=== PATIENT | male | born 1965 | race Two or more races ===

== ENCOUNTER 2019-06-06 03:19 | Inpatient (IN) | payer MEDICAID ==
[~2019-06-06] VITALS: Ht 172.7 cm; Wt 80.7 kg
--- NOTE | 2019-06-06 07:00 | NUR ---
DOOR MAKER NOTE: RECEIVED PATIENT FROM [facility], NO ACUTE DISTRESS. BREATHING EVEN AND UNLABORED, NO SOB NOTED. PATIENT STATES THAT CHEST PAIN HAS IMPROVED WITH MEDICATIONS GIVEN AT [facility]. TELE READING SR 60. ORIENTED PATIENT TO ROOM AND USE OF CALL LIGHT. AWAITING ADMIT ORDERS. PATIENT'S DAUGHTER TO BRING IN HOME MEDICATION. BED LOCKED AND IN LOWEST POSITION, CALL LIGHT IN REACH. WILL ENDORSE TO DAY NURSE TO CONTINUE WITH PLAN OF CARE.
--- NOTE | 2019-06-06 07:30 | NUR ---
COSMETICS AND TOILETRIES SALESPERSON NOTES RECEIVED PT IN BED, AWAKE, ALERT AND ORIENTED X4. CROATIAN SPEAKING BUT UNDERSTABDS MAURITIAN. PT ADMITTED FROM [place] FOR CHEST PAIN. PT HAS NO COMPLAINTS OF CHEST PAIN AT THIS TIME. NO CARDIAC OR RESPIRATORY DISTRESS NOTED. PT IS ON A FIRST LEVELER ON NSR. IV SITE NOTED ON R FOREARM. G20. INTACT AND PATENT. NO S/S OF INFECTION OR INFILTRATION NOTED. AMBULATORY. AND CONTINENT OF B/B. WILL CONTINUE TO MONITOR
[2019-06-06] MEDS ORDERED: METO25TA4 PO (07:44)
[2019-06-06] MEDS ORDERED: ATOR40TA PO (07:44)
[2019-06-06] MEDS ORDERED: ASPI-1152 PO (07:44)
[2019-06-06] MEDS ORDERED: SITA100T PO (07:44)
[2019-06-06] MEDS ORDERED: METF-442 PO (07:44)
[2019-06-06] MEDS ORDERED: FENO160T PO (07:44)
[2019-06-06 08:00] VITALS: BP 119/71
--- NOTE | 2019-06-06 08:00 | NUR ---
ADMISSION LARGE ANIMAL VETERINARIAN NOTES PT NEWLY ADMITTEDAOX3. ADMITTING DX OF CHEST PAIN. NO C/O OF CHEST PAIN AT THIS TIME. NO CARDIAC OR RESPIRATORY DISTRESS NOTED. PT IS INDONESIAN SPEAKING BUT UNDERSTANDS BRUNEIAN. 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 NSR. IV SITE NOTED ON R FORE ARM G20. INTACT AND PATENT. NO S/S OF INFILTRATION OR INFECTION NOTED FLUSHING WELL. SAFETY PRECAUTIONS IN PLACE. BED LOCKED AND IN LOW POSITION. PT IS AMBULATORY. WILL CONT TO MONITOR
[2019-06-06] MEDS ORDERED: ONDANSETRON HCL/PF 4 MG/2 ML VIAL IVP PRN (09:30)
[2019-06-06] MEDS ORDERED: MAGNESIUM HYDROXIDE 30 ML UDC PO PRN (09:30)
[2019-06-06] MEDS ORDERED: MAG HYDROX/AL HYDROX/SIMETH 30 ML UDC PO PRN (09:30)
[2019-06-06] MEDS ORDERED: Z GUARD REMEDY 2 OZ OINT TP PRN (09:30)
[2019-06-06] MEDS ORDERED: DEXTROSE 50%-WATER 50 ML DISP.SYRIN IV PRN (09:30)
[2019-06-06] MEDS ORDERED: ACETAMINOPHEN 325 MG TABLET PO PRN (09:30)
[2019-06-06] MEDS ORDERED: HYDROCODONE/APAP 5/325MG 1 EACH TABLET PO PRN (09:30)
[2019-06-06 10:12] LABS: CALCIUM, SERUM 8.8 mg/dL (8.5-10.1); CARBON DIOXIDE 30 mmol/L (21-32); CHLORIDE 104 mmol/L (98-107); CREATININE 0.9 mg/dL (0.6-1.3); GLUCOSE 165 mg/dL (74-106); SODIUM SERUM 139 mmol/L (136-145); UREA NITROGEN, BLOOD 12 mg/dL (7-18)
[2019-06-06 10:19] LABS: ALANINE AMINOTRANSFERASE 60 U/L (12-78); ALBUMIN 3.8 g/dL (3.4-5.0); ALKALINE PHOSPHATASE 69 U/L (46-116); ASPARTATE AMINOTRANSFERASE 30 U/L (15-37); BILIRUBIN,TOTAL 0.4 mg/dL (0.2-1.0); MAGNESIUM 1.8 mg/dL (1.8-2.4); PHOSPHORUS 3.3 mg/dL (2.5-4.9); TOTAL PROTEIN, SERUM 7.1 g/dL (6.4-8.2)
[2019-06-06 10:26] LABS: CHOLESTEROL 178 mg/dL (<200); HDL CHOLESTEROL 27 mg/dL (40-60); LDL 120 mg/dL (0-99); THYROID STIMULATING HORMONE 1.036 uIU/mL (0.358-3.74); TRIGLYCERIDES 216 mg/dL (30-150)
[2019-06-06] MEDS: FENOFIBRATE NANOCRYS (145 MG) 145 MG TABLET PO SCH (10:46)
[2019-06-06 12:00] LABS: BASOPHILS % (AUTO) 0.5 % (0.0-2.0); EOSINOPHILS % (AUTO) 1.7 % (0.0-6.0); HEMATOCRIT 43 % (39-51); HEMOGLOBIN 14.4 g/dL (13.5-17.5); LYMPHOCYTES # (AUTO) 1.5 /CMM (0.8-4.8); LYMPHOCYTES % (AUTO) 19.4 % (20.0-44.0); MEAN CORPUSCULAR HGB CONC 34 g/dl (31.0-36.0); MEAN CORPUSCULAR VOLUME 86 fL (80-96); MONOCYTES # (AUTO) 0.4 /CMM (0.1-1.30); MONOCYTES % (AUTO) 5.3 % (2.0-12.0); NEUTROPHILS # (AUTO) 5.5 /CMM (1.8-8.9); NEUTROPHILS % (AUTO) 73.1 % (43.0-81.0); PLATELET COUNT (AUTO) 217 /CMM (150-450); WHITE BLOOD COUNT (AUTO) 7.6 K/uL (4.3-11.0)
--- NOTE | 2019-06-06 12:00 | NUR ---
REFUSED INSULIN PT REFUSED INSULIN COVERAGE OF 4 UNITS.
[2019-06-06] MEDS: BLOOD SUGAR DIAGNOSTIC 1 EACH STRIP IN SCH ×3 (12:03→17:40)
[2019-06-06] MEDS: INSULIN REGULAR, HUMAN 100 UNIT/ML 3 ML VIAL SQ PRN (13:18)
[2019-06-06 16:00] VITALS: BP 132/77
[2019-06-06] MEDS ORDERED: ATORVASTATIN 40 MG TABLET PO SCH (18:00)
--- NOTE | 2019-06-06 18:28 | NUR ---
MS RN CLOSING NOTES PT NEWLY ADMITTED AOX3. ADMITTING DX OF CHEST PAIN. NO C/O OF CHEST PAIN AT THIS TIME. ALL DUE MEDS GIVEN THIS SHIFT. PT IS SCHEDULED FOR CT ANGIOGRAM. CONSENT OBTAINED FROM PT. NO CARDIAC OR RESPIRATORY DISTRESS NOTED. PT IS BULGARIAN SPEAKING BUT UNDERSTANDS SWAZI. 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 NSR. IV SITE NOTED ON R FORE ARM G20. INTACT AND PATENT. NO S/S OF INFILTRATION OR INFECTION NOTED FLUSHING WELL. SAFETY PRECAUTIONS IN PLACE. BED LOCKED AND IN LOW POSITION. PT IS AMBULATORY. WILL CONT TO MONITOR.
[2019-06-06 20:53] VITALS: BP 116/80
--- NOTE | 2019-06-07 06:30 | NUR ---
MS RN NOTES AWAKE & RESPONSIVE. NOT IN ANY DISTRESS. NO SOB NOTED. DENIES ANY PAIN OR DISCOMFORT AT THIS TIME. WITH IV-HL PATENT & INTACT. MONITORED ACCORDINGLY. CALL LIGHT WITHIN REACH. BED IN LOWEST POSITION. SR UP X 2 FOR SAFETY. WILL ENDORSE TO NEXT SHIFT.
[2019-06-07] MEDS: BLOOD SUGAR DIAGNOSTIC 1 EACH STRIP IN SCH ×3 (06:34→16:41)
[2019-06-07 06:39] LABS: BASOPHILS % (AUTO) 0.5 % (0.0-2.0); EOSINOPHILS % (AUTO) 2.4 % (0.0-6.0); HEMATOCRIT 43 % (39-51); HEMOGLOBIN 14.7 g/dL (13.5-17.5); LYMPHOCYTES # (AUTO) 2.1 /CMM (0.8-4.8); LYMPHOCYTES % (AUTO) 30.8 % (20.0-44.0); MEAN CORPUSCULAR HGB CONC 34 g/dl (31.0-36.0); MEAN CORPUSCULAR VOLUME 86 fL (80-96); MONOCYTES # (AUTO) 0.7 /CMM (0.1-1.30); MONOCYTES % (AUTO) 10.3 % (2.0-12.0); NEUTROPHILS # (AUTO) 3.8 /CMM (1.8-8.9); PLATELET COUNT (AUTO) 216 /CMM (150-450); RED BLOOD CELL COUNT(AUTO) 4.95 MIL/uL (4.5-6.0); WHITE BLOOD COUNT (AUTO) 6.7 K/uL (4.3-11.0)
[2019-06-07 06:51] LABS: CALCIUM, SERUM 9.3 mg/dL (8.5-10.1); CREATININE 0.9 mg/dL (0.6-1.3); POTASSIUM 4.4 mmol/L (3.5-5.1)
[2019-06-07 08:00] VITALS: BP_SYST 118; BP_DIAS 70; BP_DIAS 78
--- NOTE | 2019-06-07 08:00 | NUR ---
MS RN OPENING NOTES RECEIVED PT AOX3. NO C/O OF CHEST PAIN AT THIS TIME. KEPT PT NPO. AWAITING FOR CT ANGIOGRAM. CONSENT OBTAINED FROM PT. NO CARDIAC OR RESPIRATORY DISTRESS NOTED. PT IS PERSIAN SPEAKING BUT UNDERSTANDS CONGOL[place]. IV SITE NOTED ON R FORE ARM G20. AND ON L AC G20. INTACT AND PATENT. NO S/S OF INFILTRATION OR INFECTION NOTED FLUSHING WELL. SAFETY PRECAUTIONS IN PLACE. BED LOCKED AND IN LOW POSITION. PT IS AMBULATORY. WILL CONT TO MONITOR.
[2019-06-07] MEDS ORDERED: METOPROLOL SUCCINATE 25 MG TAB.SR.24H PO SCH (09:00)
[2019-06-07] MEDS ORDERED: ASPIRIN EC 81 MG TABLET.DR PO SCH (09:00)
[2019-06-07] MEDS: FENOFIBRATE NANOCRYS (145 MG) 145 MG TABLET PO SCH (09:01)
[2019-06-07] MEDS ORDERED: IOHEXOL-350 100 ML VIAL IV ONE ×2 (10:11→11:04)
[2019-06-07] MEDS ORDERED: IV NS 0.9% 250 ML IV ONE (10:12)
[2019-06-07] MEDS ORDERED: METOPROLOL TARTRATE INJ 5 MG/5 ML AMPUL ONE (10:24)
[2019-06-07] MEDS ORDERED: NITROGLYCERIN 0.4 MG/TAB BOTTLE ONE (10:24)
[2019-06-07] MEDS: METOPROLOL TARTRATE INJ 5 MG/5 ML AMPUL IVP PRN ×4 (10:28→10:48)
[2019-06-07] MEDS ORDERED: NITROGLYCERIN 0.4 MG/TAB BOTTLE SL ONE (10:30)
[2019-06-07] MEDS ORDERED: IV NS 0.9% 500 ML IV PRN (10:30)
[2019-06-07] MEDS ORDERED: IV NS 0.9% 500 ML IV ONE (10:44)
[2019-06-07 10:48] VITALS: BP 95/63
--- NOTE | 2019-06-07 11:17 | NUR ---
RN NOTES: CTA Procedure: Patient received 20mg of metoprolol IVP Q5mins as protocol, with Nitrostat SL x1, NS 100ml bolus to keep blood pressure stable. Patient denies pain or discomfort at this time, and able to tolerate the procedure.
--- NOTE | 2019-06-07 11:45 | NUR ---
BACK FROM CT ANGIO. PT IN STABLE CONDITION.
[2019-06-07] MEDS: INSULIN REGULAR, HUMAN 100 UNIT/ML 3 ML VIAL SQ PRN (11:48)
--- NOTE | 2019-06-07 12:00 | NUR ---
REFUSED INSULIN PT REFUSED INSULIN COVERAGE OF 3 UNITS. EXPLAINED RISKS AND BENEFITS. STILL REFUSED. Addendum: 06/07/19 at 1216 by ILA BLACKWELL RN REFUSED INSULIN PT REFUSED INSULIN COVERAGE OF 2 UNITS. EXPLAINED RISKS AND BENEFITS. STILL REFUSED.
--- NOTE | 2019-06-07 16:42 | NUR ---
D/C HOME DR HEWITT NOTIFIED OF CT ANGIOGRAM RESULTS. PER DR MARCELINA CHIN TO D/C HOME AND FOLLOW UP WITH PRIMARY PHYSICIAN. INFORMED PT TO MAKE A FOLLOW UP APPT WITH PCP WITHIN 1 WEEK.PT AGREED. D/C INSTRUCTION AND PACKET GIVEN TO PT. PT TOOK ALL BELONGINGS. PT LEFT WITH DAUGHTER KEILA
== END 2019-06-07 16:40 | disposition home or self-care (01) | DRG 203 ==
LOC: TELE 06:50 → MED 09:48
PROVIDERS: ADMIT Nurse Practitioner Acute Care; ATTEND Nurse Practitioner Acute Care
DX: M94.0 Chondrocostal junction syndrome [Tietze] (principal); E11.9 Type 2 diabetes mellitus without complications; I25.10 Atherosclerotic heart disease of native coronary artery without angina pectoris; E78.5 Hyperlipidemia, unspecified; I10 Essential (primary) hypertension; I25.2 Old myocardial infarction; Z87.891 Personal history of nicotine dependence; Z95.5 Presence of coronary angioplasty implant and graft; Z79.84 Long term (current) use of oral hypoglycemic drugs
CPT/HCPCS: 36415; 75574; 80048-TC; 80053-TC; 80061-TC; 82962-TC; 83735-TC; 84100-TC; 84443-TC; 84484-TC; 85025-TC; 87081-TC; 93307-TC; G0378; J1815; J3490; J7040; J7050; Q9967